=== PATIENT | female | born 1960 | race Caucasian/White ===

== ENCOUNTER 2025-06-15 05:12 | Inpatient (IN) | payer OTHER ==
[~2025-06-15] VITALS: Ht 152.4 cm; Wt 73.7 kg
[2025-06-15 06:00] VITALS: BP 144/93; TEMP 97.5; O2SAT 99
[2025-06-15] MEDS ORDERED: BUPIVACAINE 0.5 % PF 150 MG/30 ML VIAL ONE ×2 (06:25→06:35)
[2025-06-15] MEDS ORDERED: ANESTHESIA TRAY IN PYXIS 1 EA TRAY MC ONE (06:25)
[2025-06-15] MEDS ORDERED: FENTANYL PF 100MCG/2ML AMPUL ONE (06:34)
[2025-06-15] MEDS ORDERED: MIDAZOLAM HCL 2 MG/2ML VIAL ONE (06:34)
[2025-06-15] MEDS ORDERED: LIDOCAINE 2%-EPI 1:100,000 30 ML VIAL ONE (06:35)
[2025-06-15] MEDS: TRANEXAMIC ACID 3,000 MG in SODIUM CHLORIDE IRRIG SOLUTION 70 ML IR ONE (07:00)
[2025-06-15] MEDS ORDERED: TRANEXAMIC ACID 1,000 MG/10 ML VIAL ONE (07:04)
[2025-06-15] MEDS ORDERED: DOCUSATE SODIUM 250 MG CAPSULE PO PRN (10:30)
[2025-06-15] MEDS ORDERED: ONDANSETRON HCL/PF 4 MG/2 ML VIAL IVP PRN (10:30)
[2025-06-15] MEDS: IV LR 1000 ML 1,000 ML IV PRN (10:53)
[2025-06-15 16:00] VITALS: BP 100/72; TEMP 98.2; O2SAT 98
[2025-06-15] MEDS: ANCEF 1 GM/50 ML D5W IV SCH (16:14)
[2025-06-15 20:00] VITALS: BP 105/70; TEMP 98.1; O2SAT 94
[2025-06-15] MEDS ORDERED: SENNOSIDES 8.6 MG TABLET PO PRN (22:00)
[2025-06-15] MEDS ORDERED: BISACODYL SUPP (10 MG) 10 MG/SUPP.RECT SUPP.RECT RC PRN (22:00)
[2025-06-15] MEDS: HYDROMORPHONE 1 MG/1 ML DISP.SYRIN IV PRN (23:07)
[2025-06-16 08:00] VITALS: BP 123/81; TEMP 98.2; O2SAT 96
[2025-06-16] MEDS: ASPIRIN 325 MG TABLET PO SCH (09:24)
[2025-06-16 16:00] VITALS: BP 120/78; TEMP 97.9; O2SAT 98
[2025-06-16 20:00] VITALS: BP 133/92; TEMP 99.1; O2SAT 93; O2SAT 94
[2025-06-17 07:30] VITALS: BP 112/74; TEMP 99.5; O2SAT 93
[2025-06-17] MEDS: ACETAMINOPHEN 325 MG TABLET PO PRN (17:40)
[2025-06-17 21:49] VITALS: BP 123/81; TEMP 97.9; O2SAT 95
[2025-06-18 08:28] VITALS: BP 114/78; TEMP 98.4; O2SAT 97
[2025-06-18] MEDS: HYDROCODONE/APAP 5/325MG TABLET PO PRN (08:47)
[2025-06-18 16:09] VITALS: BP 112/80; TEMP 98.2; O2SAT 98
[2025-06-18 20:00] VITALS: BP 126/80; TEMP 98.4; O2SAT 95
[2025-06-19 08:00] VITALS: BP 122/70; TEMP 98.6; O2SAT 98
[2025-06-19 16:00] VITALS: BP 134/80; TEMP 98.2; O2SAT 96
[2025-06-19 16:24] VITALS: BP 134/80; TEMP 98.2; O2SAT 96
[2025-06-19 20:00] VITALS: BP 117/78; TEMP 98.4; O2SAT 96
[2025-06-20 08:00] VITALS: BP 120/75; TEMP 99; O2SAT 96
[2025-06-20 20:00] VITALS: BP 112/80; TEMP 99.3; O2SAT 95
[2025-06-21 08:00] VITALS: BP 124/76; TEMP 98.1; O2SAT 98
[2025-06-21 16:00] VITALS: BP 119/73; TEMP 98.1; O2SAT 96
[2025-06-21 20:00] VITALS: BP_SYST 127; BP_SYST 160; BP_DIAS 57; BP_DIAS 81; TEMP 100; TEMP 99; O2SAT 95; O2SAT 97
[2025-06-22 08:00] VITALS: BP 116/76; TEMP 98.1; O2SAT 97
== END 2025-06-22 13:33 | disposition home health service (06) | DRG 470 ==
LOC: DS 05:12 → MED 05:14
PROVIDERS: ATTEND Student in an Organized Health Care Education/Training Program
PROC: 0SRD0J9 Replacement of Left Knee Joint with Synthetic Substitute, Cemented, Open Approach (ICD-10-PCS; principal; 2025-06-15 07:00)
DX: M17.12 Unilateral primary osteoarthritis, left knee (principal); I10 Essential (primary) hypertension; E66.9 Obesity, unspecified; F17.210 Nicotine dependence, cigarettes, uncomplicated; Z68.31 Body mass index [BMI] 31.0-31.9, adult
CPT/HCPCS: 82962-TC; 97110-TC; 97116-TC; 97530-TC; A4217; A4223; A6209; C1713; C1776; G0378; J0360; J0690; J1100; J1171; J1885; J2250; J2405; J2704; J3010; J3490; J7030; J7060; J7070; J7120; L1830